=== PATIENT | male | born 1975 | race Caucasian/White ===

== ENCOUNTER 2021-06-02 18:23 | Emergency (ER) | payer OTHER ==
[~2021-06-02] VITALS: Ht 172.7 cm; Wt 79.4 kg
--- NOTE | 2021-06-02 18:23 | NUR ---
MELITA ALS TO ER BED 10
[2021-06-02 18:25] VITALS: BP 127/83
--- NOTE | 2021-06-02 18:25 | NUR ---
45Y MALE BIBA FROM HOME DUE CP AND HAVING RYTHMN OF SVT. PER FIRE 6MG AND 12MG ADENSIONE GIVEN AND FIELD AND CONVERETED PATIENT BACK TO [facility]. PT CURRENTLY DENIES ANY CP PMH: Caitlyn DÍAZ
--- NOTE | 2021-06-02 18:36 | NUR ---
Dr. Henry at bedside to exam patient.
[2021-06-02 19:02] VITALS: BP 135/84
--- NOTE | 2021-06-02 19:02 | NUR ---
Patient discharged with v/s stable. Written and verbal after care instructions given and explained. Patient verbalized understanding. Ambulatory with steady gait. All questions addressed prior to discharge. Advised to follow up with PMD.
== END 2021-06-02 19:02 | disposition home or self-care (01) ==
LOC: MED 18:23
DX: R00.2 Palpitations (principal); I47.1 Supraventricular tachycardia; I48.91 Unspecified atrial fibrillation
CPT/HCPCS: 93005; 99283